=== PATIENT | female | born 1970 | race Caucasian/White ===

== ENCOUNTER 2016-11-23 07:58 | Day surgery (SDC) | payer MEDICARE, MEDICAID ==
[~2016-11-23] VITALS: Ht 170.2 cm; Wt 112.0 kg
--- NOTE | 2016-11-23 07:08 | PCM.HPANE ---
Patient Data Surgeon Admitting Provider: Attending Provider:Tiago Askew MD Primary Care Physician:Wenceslao Buck MD Other Provider:[facility] [facility] Reason for Visit GERD Ht/WT & BMI Body Mass Index Allergies Coded Allergies: No Known Allergies (Verified Allergy, Unknown, 11/22/16) Past Anesthesia History Anesthesia History: Denies:: Abnormal Airway, Anesthesia Reactions, Difficult Intubation, Fam Anesthesia Reaction, Fam Malignant Hypertherm, Malignant Hyperthermia Diabetes History Hx Diabetes?: Yes Type of Diabetes: Type II Glycemic Control: Oral Medication MRSA MRSA: No Medications Reported Medications NPH, Human Insulin Isophane (Novolin-N U100 Insulin Vial)100 Unit/1 Ml Vial30 Unit SUBQ HS #1 VIAL Ref 0 11/22/16 Oxybutynin-Expunged Drug, Do Not Renew! 5 Mg Tablet5 Mg PO NEED FREQ. 12/29/12 Nabumetone-Expunged Drug, Do Not Renew! (Relafen-Expunged Drug, Do Not Renew!) 750 Mg [id number] Mg PO NEED FREQ. 12/29/12 Simvastatin-Expunged Drug, Choose New Med! 20 Mg [id number] Mg PO HS 12/29/12 Escitalopram-Expunged Drug, Do Not Renew! (Lexapro-Expunged Drug, Do Not Renew!) 10 Mg [id number] Mg PO NEED FREQ. 12/29/12 [Prilosec ] No Conflict Check20 Mg PO NEED FREQ. 12/29/12 Metformin-Expunged Drug, Do Not Renew! 1,000 Mg Tablet1,000 Mg PO NEED FREQ. 12/29/12 Discontinued Reported Medications Glimepiride-Expunged Drug, Do Not Renew! 2 Mg Tablet2 Mg PO DAILY 01/02/13 Venlafaxine-Expunged Drug, Do Not Renew! (Effexor-Expunged Drug, Do Not Renew!) 75 Mg [id number] Mg PO NEED FREQ. 12/29/12 Discontinued Scripts Cyclobenzaprine 5 Mg Tablet5 Mg PO HS PRN Spasm #10 TABLET Prov:Jian Appiah MD 05/19/16 History History of ENT Problems?: No HEENT History: Denies:: Abnormal Airway Cataracts Difficult Intubation Dysphagia Glaucoma Hearing Problem Sinus Problem TMJ Denture Type: None Teeth Condition: Within Normal Limits Hx of Heart Problems?: Yes Cardiovascular History: Denies:: Congestive Heart Failure Hypertension Hx of Respiratory Problem?: No Respiratory History: Denies:: Tuberculosis Use of C-PAP Machine Hx Neurologic Problems?: No Hx of GI Problems?: Yes Hx of Problems?: Yes Female Hx: Denies:: Currently Skin History: Denies:: History Skin Disorders? Pressure Ulcers Hx Musculoskeletal Problems?: No Hx of Psycho/Social Problems?: Yes Psycho Social History: Positive for:: Anxiety Hx Depression Hx Surgeries?: No Hx Any Other Health Problems?: Yes Other History: Positive for:: Hospitalization (CHILDBIRTH) Denies:: Cancer Endocrine Disease Thyroid Disease History Blood Transfusions: Denies:: Blood Transfusions Hx Diabetes: Yes Hx Alcohol Use: NoHx Substance Use: NoHave You Smoked inLast 12 mo: No Stop/Bang JIM Risk Assessment: Low Risk, <3 Yes Risk Assessment Category Category 1A: Patient has history of documented sleep apnea, and HAS NOT received any narcotic, sedative or anesthesia administration during this stay. Category 1B: Patient has history of documented sleep apnea, and HAS received any narcotic , sedative or anesthesia administration during this stay Category 2: Patient has SUSPECTED Obstructive Sleep Apnea, and HAS received any narcotic , sedative or anesthesia administration during this stay. Category 3: Patient has SUSPECTED Obstructive Sleep Apnea and HAS NOT received narcotic, sedative or anesthesia administration during this stay. Category 4: Outpatient in Procedural Areas with known sleep apnea or who screen positive for High Risk via the STOP/BANG questionnaire. Exam Exam General Appearance: Alert, Oriented X3, Cooperative, No Acute Distress HEENT/AIRWAY: MP 2 Lungs: Clear to Auscultation, Normal Air Movement Heart: Exam Unremarkable, Regular Rate/Rhythm, No Murmurs/Rubs/Gallops Plan Impression Patient chart reviewed, patient interviewed and anesthestic plan with risks, benefits, and alternatives discussed, and informed consent obtained. NPO per Anesth. Guidelines: Yes ASA Physical Status: ASA1 Plus Emergency Anesthetic Plan: MAC Bene/Risks/Altern/Consents: Yes HP Complete Prior to Induction: Yes Anel Cespedes MD Nov 23, 2016 07:08
[~2016-11-23 07:58] MED LIST: CYCL5TAB PO; DIT5 PO; ESCI10TA PO; GLIM2TAB PO; Lactated Ringer's 1,000 ML IV ONE; METF1000 PO; NABU750T35 PO; NPH,100V10 SUBQ; PRILOSEC PO; VNL75T PO; ZOC20 PO
[2016-11-23] MEDS ORDERED: Propofol 10,000 mCg/mL 20 mL Inj ONE (07:59)
[2016-11-23] MEDS ORDERED: fentaNYL-PF 50 mCg/mL 2 mL Inj ONE (07:59)
[2016-11-23 08:11] VITALS: BP 136/86; PULSE 72; RESP 17; O2SAT 99
[2016-11-23] MEDS ORDERED: Lactated Ringer's 1,000 ML IV SCH ×2 (08:53)
--- NOTE | 2016-11-23 08:53 | PCM.ANEP1 ---
Post Anesthesia Phase 1 PACU Phase 1 Assessment Vital Signs Vital Signs Date Time Temp Pulse Resp B/P Pulse Ox O2 Delivery O2 Flow Rate FiO2 11/23/16 08:11 37.1 72 17 136/86 99 Room Air Anesthetic Administered: MAC Level of Alertness: Awake, talking BURGESS's with Equal Strength: Yes Pain: No Nausea or Vomiting: No Cardiovascular Function and Hy: Yes Oxygen Delivery: Room Air Lungs: Clear to Auscultation, Normal Air Movement Anel Cespedes MD Nov 23, 2016 08:53
[2016-11-23] MEDS ORDERED: MetoCLOpramide 5 mg/mL 2 mL Inj IVPUSH PRN ×2 (08:55)
[2016-11-23] MEDS ORDERED: Ondansetron 2 mg/mL 2 mL Inj IVPUSH PRN ×2 (08:55)
[2016-11-23 08:56] VITALS: BP 109/69; PULSE 73; RESP 14; O2SAT 100
--- NOTE | 2016-11-23 09:02 | ENDO ---
[address] [address] ENDOSCOPY PROCEDURE PATIENT: DREW DUNN : 1970 MR#: [id number] ADMIT: 11/23/2016 JOB ID: [id number] DATE: 11/23/2016 TYPE OF OPERATION: Esophagogastroduodenoscopy with biopsy. PREOPERATIVE DIAGNOSIS(ES): Gastroesophageal reflux disease and nausea. POSTOPERATIVE DIAGNOSIS(ES): 1. Food in the stomach. 2. Mild nonerosive gastritis status post biopsy. ANESTHESIA: Monitored anesthesia care. COMPLICATION: None. BLOOD LOSS: Minimal. DESCRIPTION OF PROCEDURE: After risks and benefits were explained to the patient, informed consent was obtained. After anesthesia administered, upper endoscope was inserted into the mouth, intubated into the esophagus, stomach, second portion of duodenum. Mucosa carefully examined. When the procedure was done, the scope withdrawn and the procedure terminated. FINDINGS: Upon inspection of the esophagus, the esophagus was normal without masses, ulcers, lesions. Z-line located 40 cm from incisors. Upon entry of the stomach, there was mild food that was seen in the stomach. There was mild nonerosive gastritis. No masses or ulcers were seen. Retroflexion of the duodenal bulb, first and second portion normal. Biopsies taken of the antrum and body of the stomach and distal esophagus. IMPRESSIONS: 1. Food in the stomach. 2. Mild nonerosive erosive gastritis. RECOMMENDATION: 1. Await pathology results. 2. Followup with Woodrow Mcdonald in the GI Clinic as an outpatient. 3. Consider gastric emptying study as an outpatient to evaluate for gastroparesis.
[2016-11-23 09:12] VITALS: BP 125/74; PULSE 78; RESP 14; O2SAT 98
[2016-11-23 09:18] VITALS: BP 126/85; PULSE 68; RESP 16; O2SAT 100
--- NOTE | 2016-11-24 11:36 | PATH ---
SURGICAL PATHOLOGY Attending Physician:Tiago Askew MD CASE STATUS: Signed Out PATIENT NAME: DREW DUNN PID: [id number] : 1970 DATE COLLECTED:11/23/2016 22:21 SPECIMEN: 1: Stomach, Antrum, Biopsy 2: Gastric, Biopsy 3: Esophagus, Biopsy CLINICAL HISTORY: 1). ANTRUM BIOPSY 2). GASTRIC BODY BIOPSY 3). DISTAL ESOPHAGUS BIOPSY FINAL DIAGNOSIS: 1. Antrum, Biopsy: Portions of gastric antral and body-type mucosa (specimen consists predominantly of body-type mucosa) with features of mild reactive gastropathy. Negative for intestinal metaplasia, dysplasia, and malignancy. No H. pylori organisms identified by H&E stain. 2. Gastric Body, Biopsy: Portions of gastric antral and body-type mucosa with no diagnostic abnormality. No Helicobacter organisms identified by H&E stain. Negative for intestinal metaplasia, dysplasia, and malignancy. 3. Distal Esophagus, Biopsy: Portions of squamous mucosa with no diagnostic abnormality. No glandular epithelium/junctional mucosa identified for evaluation. Negative for increased inflammatory cells. Negative for dysplasia and malignancy. ICD10: K29.7 GROSS DESCRIPTION: The specimen is received in three formalin filled containers labeled with the patient's name. 1). The specimen is sublabeled "antrum" and consists of 2 portions of tissue which aggregate to 0.3 x 0.2 x 0.2 CM. The specimen is entirely submitted in cassette 1A. 2). The specimen is sublabeled "gastric" and consists of 2 portions of tissue which aggregate to 0.3 x 0.3 x 0.2 CM. The specimen is entirely submitted in cassette 2A. 3). The specimen is sublabeled "distal esophagus" and consists of a 0.3 x 0.2 x 0.1 CM portion of tissue which is entirely submitted in cassette 3A. 11/23/2016 [facility] ICD-9 CODES: CPT CODES: 1: 84376 2: 38950 3: 51279 Electronically Signed Out Lauren Morris MD [facility], [place] [address] Technical component performed at [facility], [facility] [address], [place], [address]
== END 2016-11-23 23:59 | disposition home or self-care (01) ==
LOC: END 07:58
PROVIDERS: ATTEND Internal Medicine Gastroenterology
DX: K21.9 Gastro-esophageal reflux disease without esophagitis (principal); K29.70 Gastritis, unspecified, without bleeding; R11.0 Nausea; I10 Essential (primary) hypertension; E78.5 Hyperlipidemia, unspecified; E11.9 Type 2 diabetes mellitus without complications; F41.9 Anxiety disorder, unspecified; F32.9 Major depressive disorder, single episode, unspecified; E66.9 Obesity, unspecified; Z79.84 Long term (current) use of oral hypoglycemic drugs; Z79.4 Long term (current) use of insulin; Z87.891 Personal history of nicotine dependence; Z68.38 Body mass index [BMI] 38.0-38.9, adult
CPT/HCPCS: 43239; 88305; J2250; J3010; J7120

== ENCOUNTER 2016-12-05 13:06 | Emergency (ER) | payer MEDICARE, MEDICAID ==
[~2016-12-05] VITALS: Ht 170.2 cm; Wt 112.3 kg
[~2016-12-05 13:06] MED LIST changes: -CYCL5TAB PO; -GLIM2TAB PO; -Lactated Ringer's 1,000 ML IV ONE; -VNL75T PO
[2016-12-05 13:11] VITALS: BP 129/86; PULSE 75; RESP 15; O2SAT 100
--- NOTE | 2016-12-05 15:17 | ED.REPORT ---
HPI-Headache Date of Service December 05, 2016 ED Provider: Jian Appiah MD Patient is a 46 year old female with a hx of DM and chronic neck pain who presents to the ED complaining of a right, frontal headache that radiates to the base of her neck onset yesterday evening. Associated symptoms include nausea. She denies fever, vomiting, vision changes, numbness, weakness, tingling , difficulties speaking or swallowing. or any other symptoms. Patient reports that she has never had a headache like this before. She took Oxycodone at 0600 this morning. Nursing Notes Stated Complaint: HEADACHE Chief Complaint: Headache Nursing Notes Reviewed: Yes Allergies: Coded Allergies: No Known Allergies (Verified Allergy, Unknown, 12/05/16) Scheduled NPH, Human Insulin Isophane (Novolin-N U100 Insulin Vial) 100 Unit/1 Ml Vial 30 UNIT SUBQ HS Simvastatin-Expunged Drug, Choose New Med! (Simvastatin-Expunged Drug, Choose New Med!) 20 Mg Tablet 20 MG PO HS Miscellaneous Medications ([Prilosec ]) 20 MG PO NEED FREQ. Escitalopram-Expunged Drug, Do Not Renew! (Lexapro-Expunged Drug, Do Not Renew! ) 10 Mg Tablet 10 MG PO NEED FREQ. Metformin-Expunged Drug, Do Not Renew! (Metformin-Expunged Drug, Do Not Renew!) 1,000 Mg Tablet 1,000 MG PO NEED FREQ. Nabumetone-Expunged Drug, Do Not Renew! (Relafen-Expunged Drug, Do Not Renew!) 750 Mg Tablet 750 MG PO NEED FREQ. Oxybutynin-Expunged Drug, Do Not Renew! (Oxybutynin-Expunged Drug, Do Not Renew! ) 5 Mg Tablet 5 MG PO NEED FREQ. General Time Seen by MD: 15:15 Chief Complaint Headache Hx Obtained From: Patient Arrived By: Walk-in Sudden in Onset?: Yes Onset Occurred: Yesterday Symptom Duration: Since onset Similar Sx Previous: Yes Risk-Headache )( SAH Risk Stratification No Hypertension, No Polycystic kidney disease RF Statements: Risk factors reviewed )( IC Mass Risk Stratification No HIV RF Statements: Risk factors reviewed Past Medical History Past Medical History Reports: Diabetes mellitus Past Surgical History Bladder surgery R shoulder Reports: Tonsillectomy Reports: Back/neck surgery, Tubal ligation Social History Other Social History: Good social support Ambulatory Status Independent Review of Systems Review of Systems Note: -tingling sensation Constitutional: Denies: Fever GI: Reports: Nausea, Denies: Dysphagia, Vomiting Neurologic: Reports: Headache, Denies: Numbness, Unable to speak, Vision change, Weakness Complete sys rev & neg: except as marked. Physical Exam Initial Vital Signs Vital Signs (First) Date Time Temp Pulse Resp B/P Pulse Ox O2 Delivery O2 Flow Rate FiO2 12/05/16 13:11 36.4 75 15 129/86 100 Room Air Initial VS: Reviewed Respiratory: No respiratory distress Cardiovascular: Intact distal pulses Abdomen / GI: Soft Skin: Warm, Dry Psychiatric: Mood/affect normal, Behavior normal, Normal thought content General/Constitutional: Awake, Alert, Well developed Head / Eyes: Atraumatic, Normocephalic, PERRL, EOMI Neck: Atraumatic, Supple, Full range of motion Negative brudzinski's test Neurologic: Oriented X3, Speech NL, CN II - XII intact Strength 5/5 in all 4 extremities Re-Eval/Medical Decision Med Decision/Clinical Course 46-year-old female history of chronic headaches presenting complaining of headache. She has no meningeal signs or symptoms. She has a normal neurological exam. She appears quite well. She was given Toradol and Reglan with resolution. Discussed with patient option of performing CT scan which patient decided to forego. Do not suspect meningitis given no meningeal signs or symptoms. She does have brain MRI from June of last year that showed nonspecific white matter changes. However given no neurological deficits do not think emergent imaging is necessary at this time. Patient agrees with plan. She felt much better and was discharged home in good condition with return precautions. Re-Evaluation/Progress : Time of Eval: 16:53 )( Patient Status: Condition improved Re-Evaluation/Progress Note: Rechecked patient. She is feeling better. Discussed plan for discharge. Patient understands and agrees with plan. All questions addressed at this time. Counseled Regarding: Diagnosis, Need for follow-up, When/why to return to ED Discharge & Departure Impression: Primary Impression: Headache Headache type: unspecified Headache chronicity pattern: unspecified pattern Intractability: not intractable Qualified Code: R51 - Headache Disposition: Home Discharge Condition All VS Reviewed: Yes Condition: Improved Patient Instructions: Acute Headache (GEN) Additional Instructions: Thank you for entrusting us with your care today. Your evaluation is reassuring and it does not appear that there is a dangerous cause for your headache today. Take Ibuprofen (up to 800 mg 3x day) if you continue to have pain. Follow up with your primary care doctor in the next week. Return to the emergency department if you experience a worsening headache, fever , difficulty speaking or swallowing, numbness, vision changes, or any other new or worsening symptoms. Referrals: Wenceslao Buck MD (PCP) Scribe Attestation Portions of this note were transcribed by Janie Morales. I, Dr. Appiah personally performed the history, physical exam and medical decision-making; I reviewed and confirmed the accuracy of the information in the transcribed note. Signed by: Janie Morales 12/05/16, 1705 copies to: Wenceslao Buck MD, Ben M MD December 05, 2016 15:16 JANIE MORALES December 05, 2016 15:23
[2016-12-05] MEDS ORDERED: MetoCLOpramide 5 mg/mL 2 mL Inj IM ONE (15:25)
[2016-12-05 17:20] VITALS: BP 129/86; PULSE 75; RESP 15; O2SAT 100
== END 2016-12-05 16:58 | disposition home or self-care (01) ==
LOC: SED 13:06
DX: R51 Headache (principal); E11.9 Type 2 diabetes mellitus without complications; Z79.4 Long term (current) use of insulin
CPT/HCPCS: 96372; 99284; J1885; J2765

== ENCOUNTER 2016-12-18 10:54 | Emergency (ER) | payer MEDICARE, MEDICAID ==
[~2016-12-18] VITALS: Ht 168.9 cm; Wt 113.2 kg
[2016-12-18 11:01] VITALS: BP 137/84; PULSE 84; RESP 18; O2SAT 96
--- NOTE | 2016-12-18 11:28 | ED.REPORT ---
HPI-Abd Pain F 40 and Over Date of Service December 18, 2016 ED Provider: Justice Hernandez Patient is a 46 year old female with a hx of pancreatitis who presents to the ED complaining of upper abdominal pain onset 3 days ago. Associated symptoms include nausea and feeling bloated. She denies vomiting, constipation, diarrhea , fever, dysuria, or any other symptoms. She has not had symptoms like this previously. Her last period was about a month ago. Patient recently had a normal gastric emptying study and an upper GI endoscopy that revealed mild gastritis. She takes metformin, Lovastatin Zantac, Prilosec, and Zofran. Nursing Notes Stated Complaint: ABDOMINAL PAIN Chief Complaint: Female Abdominal Pain Nursing Notes Reviewed: Yes Allergies: Coded Allergies: No Known Allergies (Verified Allergy, Unknown, 12/05/16) Scheduled Hyoscyamine Sulfate (Levsin) 0.125 Mg Tab 0.125 MG PO QID NPH, Human Insulin Isophane (Novolin-N U100 Insulin Vial) 100 Unit/1 Ml Vial 30 UNIT SUBQ HS Simvastatin-Expunged Drug, Choose New Med! (Simvastatin-Expunged Drug, Choose New Med!) 20 Mg Tablet 20 MG PO HS Miscellaneous Medications ([Prilosec ]) 20 MG PO NEED FREQ. Escitalopram-Expunged Drug, Do Not Renew! (Lexapro-Expunged Drug, Do Not Renew! ) 10 Mg Tablet 10 MG PO NEED FREQ. Metformin-Expunged Drug, Do Not Renew! (Metformin-Expunged Drug, Do Not Renew!) 1,000 Mg Tablet 1,000 MG PO NEED FREQ. Nabumetone-Expunged Drug, Do Not Renew! (Relafen-Expunged Drug, Do Not Renew!) 750 Mg Tablet 750 MG PO NEED FREQ. Oxybutynin-Expunged Drug, Do Not Renew! (Oxybutynin-Expunged Drug, Do Not Renew! ) 5 Mg Tablet 5 MG PO NEED FREQ. General Time Seen by MD: 11:27 Chief Complaint Abdominal pain Hx Obtained From: Patient, Spouse Arrived By: Walk-in Sudden in Onset?: Yes Onset Occurred: 3 days ago Similar Sx Previous: No Risk Factors )( AAA Risk Stratification No Hypertension, No Prior AAA Risk factors reviewed Past Medical History Past Medical History Reports: Diabetes mellitus, Hyperlipidemia Past Surgical History Bladder surgery R shoulder Reports: Tonsillectomy Reports: Back/neck surgery, Tubal ligation Smoking History Unknown if Ever Smoker Social History Alcohol Use: Denies alcohol use Other Social History: Good social support, Ambulatory Status Independent Review of Systems +bloated Constitutional: Denies: Fever GI: Reports: Abdominal pain, Nausea, Denies: Constipation, Diarrhea, Vomiting Female: Denies: Dysuria Complete sys rev & neg: except as marked. Physical Exam Vital Signs Vital Signs (First) Date Time Temp Pulse Resp B/P Pulse Ox O2 Delivery O2 Flow Rate FiO2 12/18/16 11:01 36.5 84 18 137/84 96 Room Air Initial VS: Reviewed Head / Eyes: Atraumatic, Normocephalic Neck: Full range of motion Skin: Warm, Dry Neurologic: Alert, Oriented, Nonfocal Psychiatric: Mood/affect normal, Behavior normal, Normal thought content General/Constitutional: Awake, Alert, Well developed Appearance / Presentation: Positive: Obese, morbidly Respiratory / Chest: Breath sounds NL, Breath sounds = bilat, No respiratory distress Cardiovascular: Heart rate NL, Regular rhythm, Heart sounds NL, No gallop, No murmurs, No rubs Abdomen: Soft, No guarding, No rebound, BS normoactive Tenderness/Guarding/Rebound: Positive: Tender diffuse Back: Inspection NL, Non-tender Interpretation & Diagnostics Lab Results Interpretation Result Diagram: 12/18/16 1150 12/18/16 1150 Test 12/18/16 11:30 12/18/16 11:50 Hold Urine Received (Received) White Blood Count 8.2th/mm3 (3.8-10.1) Red Blood Count 4.52mil/mm3 (3.90-5.20) Hemoglobin 10.8g/dL (12.0-15.6) Hematocrit 35.6% (35.0-46.0) Mean Corpuscular Volume 78.8fL (81-100) Mean Corpuscular Hemoglobin 23.9pg (27.0-35.0) Mean Corpuscular Hemoglobin Concent 30.3% (32.0-37.0) Red Cell Distribution Width 16.9% (12.3-15.4) Platelet Count 354bil/L (150-400) Neutrophils (%) (Auto) 77.7% (40-74) Lymphocytes (%) (Auto) 14.1% (14-46) Monocytes (%) (Auto) 6.6% (4-12) Eosinophils (%) (Auto) 0.7% (0-5) Basophils (%) (Auto) 0.2% (0-3) Sodium Level 134mEq/L (134-144) Potassium Level 3.9mEq/L (3.5-5.2) Chloride Level 97mEq/L (97-108) Carbon Dioxide Level 22mmol/L (18-29) Blood Urea Nitrogen 11mg/dL (6-24) Creatinine 0.45mg/dL (0.57-1.00) Estimat Glomerular Filtration Rate 214mL/min (>59) Glucose Level 157mg/dL (60-99) Calcium Level 8.8mg/dL (8.5-10.1) Magnesium Level 1.4mg/dL (1.6-2.6) Total Bilirubin 0.2mg/dL (0.0-1.2) Aspartate Amino Transf (AST/SGOT) 12U/L (0-50) Alanine Aminotransferase (ALT/SGPT) 12U/L (0-32) Alkaline Phosphatase 66U/L (25-150) Total Protein 6.7g/dL (6.4-8.4) Albumin 3.5g/dL (3.4-5.0) Lipase 36U/L (13-60) Hold Pantoja Top Tube Received (Received) Lab Results Interpretation: Urine normal X-Ray Abdominal Interpretation IMPRESSION: Unremarkable exam. Dictated by: Yola Martinez M.D. on 12/18/2016 at 12:39 Approved by: Yola Martinez M.D. on 12/18/2016 at 12:39 Study: 2 view Interpretation / Wet Read by: Interpret - Radiologist Re-Eval/Medical Decision Med Decision/Clinical Course On my review of her plain films, I was concerned re constipation, pt reports diarrhea. Did not wish to pursue treatment for constipation. Re-Evaluation/Progress : Time of Eval: 13:09 )( Re-Eval Abdomen: Soft Re-Evaluation/Progress Note: Rechecked patient. Discussed lab and xray results. Discussed plan for discharge. Patient understands and agrees with plan. All questions addressed at this time. Counseled Regarding: Diagnosis, Lab results, Need for follow-up, When/why to return to ED Discharge & Departure Primary Impression: Abdominal pain Abdominal location: generalized Qualified Code: R10.84 - Generalized abdominal pain Disposition: Home Discharge Condition All VS Reviewed: Yes Condition: Stable Additional Instructions: Thank you for entrusting us with your care. Your labs, xray, and examination are all reassuring. There does not appear to be a dangerous cause for your abdominal pain at this time. We suggest trying an anti-spasmodic, levsin 0.125mg up to every 4 hours as needed for abdominal pain. Follow up with primary care soon, call tuesday for an appointment. Return to the emergency department if you experience bloody stools, fever, or any other new or worsening symptoms. Referrals: Wenceslao Buck MD (PCP) Scribe Attestation Portions of this note were transcribed by Janie Roque. I, Dr. Hernandez personally performed the history, physical exam and medical decision-making; I reviewed and confirmed the accuracy of the information in the transcribed note. Signed by: Janie Roque 12/18/2016, 1320 copies to: Wenceslao Buck MD, Donald L MD December 18, 2016 11:28 JANIE ROQUE December 18, 2016 11:39
[2016-12-18 12:01] LABS: BASOPHILS % (AUTO) 0.2 % (0-3); EOSINOPHILS % (AUTO) 0.7 % (0-5); MONOCYTES % (AUTO) 6.6 % (4-12); Mean Corpuscular Hemoglobin 23.9 pg (27.0-35.0); Mean Corpuscular Volume 78.8 fL (81-100); NEUTROPHILS % (AUTO) 77.7 % (40-74); Platelet Count 354 bil/L (150-400)
[2016-12-18 12:24] LABS: Magnesium 1.4 mg/dL (1.6-2.6)
--- NOTE | 2016-12-18 12:41 | DRSVH ---
PROCEDURE: X-RAY ACUTE ABDOMINAL SERIES ([id number]) INDICATIONS: abdominal pain TECHNIQUE: One view chest and two views of the abdomen were acquired. COMPARISON: None. FINDINGS: Surgical changes and devices: None. Chest: Lungs are clear. Heart size is normal. No pleural effusions. No pneumoperitoneum. Abdomen: Bowel gas pattern is normal. No suspicious calcifications. Visualized solid organ contour s appear normal. Bones: No suspicious bony lesions. IMPRESSION: Unremarkable exam. Dictated by: Yola Martinez M.D. on 12/18/2016 at 12:39 Approved by: Yola Martinez M.D. on 12/18/2016 at 12:39
[2016-12-18 12:58] VITALS: BP 132/81; PULSE 82; O2SAT 97
[2016-12-18] MEDS ORDERED: HSC.125T PO (13:18)
[2016-12-18 13:29] VITALS: BP 132/81; PULSE 82; RESP 18; O2SAT 97
== END 2016-12-18 13:30 | disposition home or self-care (01) ==
LOC: SED 10:54
DX: R10.84 Generalized abdominal pain (principal); R11.0 Nausea; E11.9 Type 2 diabetes mellitus without complications; E78.5 Hyperlipidemia, unspecified

== ENCOUNTER 2017-04-26 18:52 | Emergency (ER) | payer MEDICARE, MEDICAID ==
[~2017-04-26] VITALS: Ht 167.6 cm; Wt 111.8 kg
[~2017-04-26 18:52] MED LIST changes: +HSC.125T PO
[2017-04-26 19:16] VITALS: BP 133/83; PULSE 79; RESP 22; O2SAT 100
--- NOTE | 2017-04-26 21:15 | ED.REPORT ---
HPI-Eye Problem Date of Service Apr 26, 2017 ED Provider: Jad Roberson MD The patient is a 47 year old female with a history of DM, and left eye cataracts presenting to the ED complaining of right eye pain onset 1.5 weeks ago. She claims she saw an eye doctor at [facility] yesterday and was told to use eye drops every two hours. She has been seen by the same doctor twice. Her eye is tender to touch, and her vision is blurry. The pain is exacerbated by light. She last used the dilating drops about 6.5 hours ago. Additionally, the patient reports having a headache. She denies having discharge from her eye. Nursing Notes Stated Complaint: EYE & HEAD PAIN Chief Complaint: Eye Nursing Notes Reviewed: Yes Allergies: Coded Allergies: No Known Allergies (Verified Allergy, Unknown, 04/26/17) Scheduled Difluprednate (Durezol) 5 Ml Drops 5 ML OD Q4H Hyoscyamine Sulfate (Levsin) 0.125 Mg Tab 0.125 MG PO QID NPH, Human Insulin Isophane (Novolin-N U100 Insulin Vial) 100 Unit/1 Ml Vial 30 UNIT SUBQ HS Simvastatin-Expunged Drug, Choose New Med! (Simvastatin-Expunged Drug, Choose New Med!) 20 Mg Tablet 20 MG PO HS Miscellaneous Medications ([Prilosec ]) 20 MG PO NEED FREQ. Escitalopram-Expunged Drug, Do Not Renew! (Lexapro-Expunged Drug, Do Not Renew! ) 10 Mg Tablet 10 MG PO NEED FREQ. Metformin-Expunged Drug, Do Not Renew! (Metformin-Expunged Drug, Do Not Renew!) 1,000 Mg Tablet 1,000 MG PO NEED FREQ. Nabumetone-Expunged Drug, Do Not Renew! (Relafen-Expunged Drug, Do Not Renew!) 750 Mg Tablet 750 MG PO NEED FREQ. Oxybutynin-Expunged Drug, Do Not Renew! (Oxybutynin-Expunged Drug, Do Not Renew! ) 5 Mg Tablet 5 MG PO NEED FREQ. General Time Seen by MD: 21:12 Chief Complaint Pain (right eye) Hx Obtained From: Patient Arrived By: Walk-in Sudden in Onset?: Yes Onset Occurred: More than a week ago... (1.5 weeks) Symptom Duration: Since onset Quality: Painful Related History: Reports: Cataracts (left eye) Immunizations: All up to date Recent Healthcare: No recent hospitalization, Recent doctor visit Similar Sx Previous: Yes Past Medical History Past Medical History Left eye cataracts Reports: Diabetes mellitus, Hyperlipidemia Past Surgical History Bladder surgery R shoulder Reports: Tonsillectomy Reports: Back/neck surgery, Tubal ligation Smoking History Unknown if Ever Smoker Social History Alcohol Use: Denies alcohol use Other Social History: Good social support, Ambulatory Status Independent Review of Systems Constitutional: Denies: Chills, Fever Eyes: Reports: Blurred right, Eye pain right, Photophobia, Denies: Discharge right Neurologic: Reports: Headache Complete sys rev & neg: except as marked. Physical Exam Initial Vital Signs Vital Signs (First) Date Time Temp Pulse Resp B/P Pulse Ox O2 Delivery O2 Flow Rate FiO2 04/26/17 19:16 36.7 79 22 133/83 100 Room Air Initial VS: Reviewed, Vital signs normal General / Const: Well-developed, Well-nourished ENT: Mucous membranes moist Neck: Supple, Full range of motion Respiratory: Breath sounds normal, No respiratory distress Cardiovascular: Regular rate & rhythm, Heart sounds normal Abdomen / GI: Soft, Non-tender Extremities: Vascular intact, Neuro intact Skin: Warm, Dry Neurologic: Alert, Oriented Psychiatric: Mood/affect normal Head / Eyes: Atraumatic, Normocephalic injected and inflamed right eye Photophobia Small 2mm pupil Re-Eval/Medical Decision Med Decision/Clinical Course Painful right eye secondary to iritis, not responding to steroids. Case was discussed with the on-call rn urology. Prescription was called in for the morning for a stronger ophthalmic steroid. In addition she was given Percocet for the pain. Risk of medication was discussed. Re-Evaluation/Progress #1: Time of Eval: 21:41 Re-Evaluation/Progress Note: Patient rechecked. She was on the generic prednisolone eye drop medication. Re-Evaluation/Progress #2: Time of Eval: 22:10 Re-Evaluation/Progress Note: Patient rechecked. Discussed plan to discharge. All questions addressed at this time. Counseled Regarding: Diagnosis, Need for follow-up, When/why to return to ED Discharge & Departure Primary Impression: Iritis Disposition: Home Discharge Condition All VS Reviewed: Yes Condition: Stable Patient Instructions: Iritis (ED) Additional Instructions: The on-call rn urology marcos recommended switching from prednisolone to a much stronger steroid called Durezol. You can pick this up at the pharmacy first thing in the morning. Continue using the prednisolone every 2 hours while awake. Oxycodone 5/acetaminophen 325 (Percocet), 1 or 2 pills every 4-6 hours as needed for severe pain, #10 dispensed. Call me at [phone] between now and 6 AM if you have any questions or concerns. Referrals: Wenceslao Buck MD (PCP) Suzanneibe Attestation Portions of this note were transcribed by Baldo Ponce. I, Dr. Roberson personally performed the history, physical exam and medical decision-making; I reviewed and confirmed the accuracy of the information in the transcribed note. Signed by: Rose Chaidez, 04/26/2017 copies to: Wenceslao Buck MD, Howard L MD Apr 26, 2017 21:15 Apr 26, 2017 21:23
[2017-04-26] MEDS ORDERED: Tetracaine 0.5% 4 mL Ophthalmic Solution RIGHT_EYE ONE (21:25)
[2017-04-26] MEDS ORDERED: DIFL5DRO OD (21:54)
[2017-04-26] MEDS ORDERED: oxyCODONE-Acetamin 5-325 mg Tablet PO ONE (21:55)
[2017-04-26] MEDS ORDERED: _oxyCODONE/APAP 5-325 mg Tablet PO PRN (22:05)
[2017-04-26 22:42] VITALS: BP 125/79; PULSE 70; RESP 20; O2SAT 100
== END 2017-04-26 22:43 | disposition home or self-care (01) ==
LOC: SED 18:52
DX: H20.9 Unspecified iridocyclitis (principal); E11.9 Type 2 diabetes mellitus without complications; E78.5 Hyperlipidemia, unspecified